=== PATIENT | male | born 1935 | race Two or more races ===

== ENCOUNTER → 2021-08-18 | Outpatient (CLI) | payer OTHER ==
[~2021-08-18] MED LIST: AML5T PO; SIMV-8 PO
[2021-08-18 09:10] LABS: Basophils # (auto) 0.1 10 ^3/uL (0-0.2); Basophils % (auto) 0.7 % (0.0-2.0); Eosinophils # (auto) 0.2 10 ^3/uL (0-0.8); Eosinophils % (auto) 2.6 % (0.0-7.0); Hematocrit 38.8 % (41.0-53.0); Hemoglobin 12.7 g/dL (13.5-17.5); Lymphocytes % (auto) 27.2 % (10.0-50.0); Mean Corpuscular Hemoglobin 28.1 pg (28.0-32.0); Mean Corpuscular Hgb Conc. 32.8 g/dL (32.0-36.0); Mean Corpuscular Volume 85.8 fL (80.0-100.0); Monocytes # (auto) 0.7 10 ^3/uL (0-1.3); Monocytes % (auto) 9.1 % (0.0-12.0); Neutrophils # (auto) 4.5 10 ^3/uL (1.6-8.6); Neutrophils % (auto) 60.4 % (37.0-80.0); Nucleated Red Blood Cells % 0.1 %; Red Blood Cells 4.52 10^6/uL (4.5-5.90); Red Cell Distribution Width 14.9 % (11.8-14.3); White Blood Cell 7.4 10^3/uL (4.4-10.8)
[2021-08-18 09:16] LABS: Urine Bacteria NONE SEEN /hpf (None Seen); Urine Blood Negative /uL (Negative); Urine Mucus FEW (None Seen); Urine Specific Gravity 1.011 (1.001-1.035); Urine WBC 1 /hpf (0 - 3)
[2021-08-18 10:09] LABS: Magnesium 2.2 mg/dL (1.6-2.6); Potassium 4.8 mmol/L (3.5-5.1)
[2021-08-18 11:15] LABS: Calcium 8.5 mg/dL (8.5-10.1)
[2021-08-18 11:33] LABS: Albumin 3.3 g/dL (3.4-5.0); BUN/Creatinine Ratio 19.5; Bilirubin, Total 0.4 mg/dL (0.2-1.0); Total Protein 6.3 g/dL (6.4-8.2)
== END | disposition home or self-care (01) ==
LOC: LAB 08:24
PROVIDERS: ATTEND Internal Medicine
DX: I12.9 Hypertensive chronic kidney disease with stage 1 through stage 4 chronic kidney disease, or unspecified chronic kidney disease (principal); E11.22 Type 2 diabetes mellitus with diabetic chronic kidney disease; N18.32 Chronic kidney disease, stage 3b; E78.5 Hyperlipidemia, unspecified
CPT/HCPCS: 36415; 80053; 80061; 81001; 83036; 83735; 83880; 84100; 84443; 85025

== ENCOUNTER → 2021-09-26 | Outpatient (CLI) | payer OTHER | END | disposition home or self-care (01) | LOC: XYW 09:18 | PROVIDERS: ATTEND Internal Medicine | DX: I34.8 Other nonrheumatic mitral valve disorders (principal) | CPT/HCPCS: 93306 ==

== ENCOUNTER → 2021-10-07 | Outpatient (CLI) | payer OTHER ==
[2021-10-07 13:19] LABS: Chloride 112 mmol/L (98-107); Potassium 4.3 mmol/L (3.5-5.1); Sodium 142 mmol/L (136-145)
[2021-10-07 13:28] LABS: Anion Gap 6 (5-15); BUN/Creatinine Ratio 17.9; Blood Urea Nitrogen 33 mg/dL (7-18); Calcium 8.3 mg/dL (8.5-10.1); Carbon Dioxide 24 mmol/L (21-32); GFR African American 45 mL/min; GFR Non-African American 37 mL/min; Glucose 145 mg/dL (74-106)
== END | disposition home or self-care (01) ==
LOC: LAB 08:27
PROVIDERS: ATTEND Internal Medicine
DX: E11.9 Type 2 diabetes mellitus without complications (principal)
CPT/HCPCS: 36415; 80048

== ENCOUNTER → 2022-02-17 | Outpatient (CLI) | payer OTHER ==
[2022-02-17 08:35] LABS: Urine Bacteria NONE SEEN /hpf (None Seen); Urine Blood Negative /uL (Negative); Urine WBC <1 /hpf (0 - 3)
[2022-02-17 08:52] LABS: Albumin 3.1 g/dL (3.4-5.0); Calcium 8.4 mg/dL (8.5-10.1); Potassium 4.3 mmol/L (3.5-5.1)
[2022-02-17 08:55] LABS: Protein, Urine 96.6 mg/dL (0.0-11.9)
[2022-02-17 08:56] LABS: BUN/Creatinine Ratio 17.2; Bilirubin, Total 0.4 mg/dL (0.2-1.0); Total Protein 6.5 g/dL (6.4-8.2)
== END | disposition home or self-care (01) ==
LOC: LAB 08:11
PROVIDERS: ATTEND Internal Medicine Nephrology
DX: N18.32 Chronic kidney disease, stage 3b (principal); N17.2 Acute kidney failure with medullary necrosis
CPT/HCPCS: 36415; 80053; 81001; 82570; 84156

== ENCOUNTER 2022-09-26 14:33 | Inpatient (IN) | payer OTHER ==
[~2022-09-26] VITALS: Ht 167.6 cm; Wt 79.9 kg
[2022-09-26] MEDS ORDERED: SODIUM CHLORIDE 0.9% 1,000 ML IV SCH (17:15)
[2022-09-26] MEDS ORDERED: ONDANSETRON HCL 4 MG/2 ML VIAL IV PRN (17:15)
[2022-09-26 18:03] VITALS: BP 175/84
[2022-09-26] MEDS ORDERED: PANTOPRAZOLE 40 MG/10 ML VIAL INJ IV ONE (18:15)
[2022-09-26 18:43] LABS: Albumin 2.5 g/dL (3.4-5.0); Anion Gap 8 (5-15); BUN/Creatinine Ratio 18.8; Blood Urea Nitrogen 36 mg/dL (7-18); Calcium 8.6 mg/dL (8.5-10.1); Carbon Dioxide 20 mmol/L (21-32); Chloride 114 mmol/L (98-107); GFR African American 43 mL/min; GFR Non-African American 35 mL/min; Glucose 79 mg/dL (74-106); Potassium 5.1 mmol/L (3.5-5.1); Sodium 142 mmol/L (136-145)
[2022-09-26 18:46] LABS: Alanine Aminotransferase 12 U/L (16-61); Alkaline Phosphatase 124 U/L (45-117); Aspartate Aminotransferase 36 U/L (15-37); Bilirubin, Total 0.6 mg/dL (0.2-1.0); Total Protein 7.2 g/dL (6.4-8.2)
[2022-09-26 18:58] LABS: Hematocrit 46.2 % (41.0-53.0); Hemoglobin 13.2 g/dL (13.5-17.5); Mean Corpuscular Hemoglobin 27.8 pg (28.0-32.0); Mean Corpuscular Hgb Conc. 28.5 g/dL (32.0-36.0); Mean Corpuscular Volume 97.5 fL (80.0-100.0); Red Blood Cells 4.74 10^6/uL (4.5-5.90); Red Cell Distribution Width 16.3 % (11.8-14.3); White Blood Cell 7.1 10^3/uL (4.4-10.8)
[2022-09-26] MEDS ORDERED: hydrALAZINE HCL 20 MG/ML VL IV PRN (19:00)
[2022-09-26 19:01] LABS: Band Neutrophils % (manual) 0; Basophils % (manual) 0 (0.0-2.0); Blast Cells 0; Metamyelocytes % 0; Myelocytes % 0; Promyelocytes % 0; Reactive Lymphocytes 0
[2022-09-26 19:27] LABS: Eosinophils % (manual) 1 (0-7); Lymphocytes % (manual) 17 (10.0-50.0); Monocytes % (manual) 15 (0-12)
[2022-09-26 20:41] LABS: INR 1.13 (0.9-1.15)
[2022-09-26 22:00] VITALS: BP 176/80
[2022-09-26 22:57] LABS: Urine Bacteria NONE SEEN /hpf (None Seen); Urine Blood Negative /uL (Negative); Urine Hyaline Cast MOD /lpf (0 - 2); Urine Mucus FEW (None Seen); Urine Specific Gravity 1.019 (1.001-1.035); Urine WBC <1 /hpf (0 - 3)
[2022-09-27] VITALS (10 sets, daily range): BP systolic 77–146; BP diastolic 44–82
[2022-09-27] MEDS ORDERED: LIDOCAINE VISCOUS 2% 15ML UD ONE (08:31)
[2022-09-27] MEDS ORDERED: diphenhdrAMINE HCL 50 MG/1 ML VL ONE (08:31)
[2022-09-27] MEDS ORDERED: MIDAZOLAM HCL 2MG/2ML 2ml VIAL (1mg/ml) ONE (08:31)
[2022-09-27] MEDS ORDERED: fentaNYL CITRATE 100 MCG/2 ML VL ONE (08:32)
[2022-09-27] MEDS: PANTOPRAZOLE 40 MG/10 ML VIAL INJ IV SCH (09:38)
[2022-09-27] MEDS ORDERED: amLODIPine BESYLATE 5 MG TAB PO SCH (10:00)
[2022-09-27] MEDS ORDERED: ADENOSINE 6 MG/2 ML INJ IV ONE (14:15)
[2022-09-27] MEDS: SODIUM CHLORIDE 0.9% 1,000 ML IV SCH (14:30)
[2022-09-27] MEDS ORDERED: AMIODARONE HCL 150 MG in D5W 5% 100 ML IV ONE (14:30)
[2022-09-27] MEDS ORDERED: SODIUM CHLORIDE 0.9% 500 ML IV ONE (14:30)
[2022-09-27] MEDS ORDERED: AMIODARONE 450mg/250ml AE 250 ML IV SCH (14:45)
[2022-09-27] MEDS ORDERED: ceFAZolin 1GM/50ML 50 ML IV ONE (14:45)
[2022-09-27] MEDS ORDERED: NOREPINEPHRINE 8 MG/250ML KIT 250 ML IV ONE (15:15)
[2022-09-27] MEDS ORDERED: CLINIMIX PER PHARMACY 0 ML IV SCH (16:30)
[2022-09-27 19:12] LABS: Anion Gap 8 (5-15); Carbon Dioxide 16 mmol/L (21-32); Chloride 117 mmol/L (98-107); Glucose 115 mg/dL (74-106); Potassium 5.4 mmol/L (3.5-5.1); Sodium 141 mmol/L (136-145)
[2022-09-27 19:15] LABS: BUN/Creatinine Ratio 19.6; Blood Urea Nitrogen 39 mg/dL (7-18); GFR African American 41 mL/min; GFR Non-African American 34 mL/min
[2022-09-27 19:16] LABS: Alanine Aminotransferase 16 U/L (16-61); Albumin 2.4 g/dL (3.4-5.0); Alkaline Phosphatase 122 U/L (45-117); Aspartate Aminotransferase 44 U/L (15-37); Bilirubin, Total 0.6 mg/dL (0.2-1.0); Calcium 8.4 mg/dL (8.5-10.1); Magnesium 2.7 mg/dL (1.6-2.6); Total Protein 6.8 g/dL (6.4-8.2)
[2022-09-27] MEDS: AMINO ACID INFUSION IN D10W 1,000 ML IV NR (21:02)
[2022-09-27] MEDS: AMIODARONE 450mg/250ml AE 250 ML IV SCH (21:02)
[2022-09-27] MEDS ORDERED: ATORVASTATIN 20 MG TAB PO SCH (22:00)
[2022-09-27] MEDS: InsuLIN REG 1unit/0.01ml Soln (100units/ml) SC SCH (23:18)
[2022-09-27] MEDS: ACCU-CHEK COMFORT CURVE STRIP VI SCH (23:19)
[2022-09-28] MEDS ORDERED: DEXTROSE (50%) 50ML SYRG IV SCH
[2022-09-28 05:45] VITALS: BP 141/67
[2022-09-28] MEDS: InsuLIN REG 1unit/0.01ml Soln (100units/ml) SC SCH ×4 (06:00→23:45)
[2022-09-28 06:50] LABS: Albumin 2.3 g/dL (3.4-5.0); BUN/Creatinine Ratio 17.2; Bilirubin, Total 0.7 mg/dL (0.2-1.0); Calcium 8.2 mg/dL (8.5-10.1); Magnesium 2.5 mg/dL (1.6-2.6); Phosphorus 4.6 mg/dL (2.5-4.90); Total Protein 6.6 g/dL (6.4-8.2)
[2022-09-28] MEDS: ACCU-CHEK COMFORT CURVE STRIP VI SCH ×4 (06:55→23:45)
[2022-09-28 06:56] LABS: Basophils # (auto) 0 10 ^3/uL (0-0.2); Basophils % (auto) 0.4 % (0.0-2.0); Eosinophils # (auto) 0.1 10 ^3/uL (0-0.8); Eosinophils % (auto) 0.8 % (0.0-7.0); Hematocrit 39.9 % (41.0-53.0); Lymphocytes # (auto) 1.2 10 ^3/uL (0.4-5.4); Lymphocytes % (auto) 14.2 % (10.0-50.0); Mean Corpuscular Hemoglobin 27.9 pg (28.0-32.0); Mean Corpuscular Hgb Conc. 32.7 g/dL (32.0-36.0); Mean Corpuscular Volume 85.4 fL (80.0-100.0); Monocytes # (auto) 1.3 10 ^3/uL (0-1.3); Monocytes % (auto) 15.7 % (0.0-12.0); Neutrophils # (auto) 5.8 10 ^3/uL (1.6-8.6); Neutrophils % (auto) 68.9 % (37.0-80.0); Red Blood Cells 4.67 10^6/uL (4.5-5.90); Red Cell Distribution Width 14.8 % (11.8-14.3); White Blood Cell 8.4 10^3/uL (4.4-10.8)
[2022-09-28] MEDS: SODIUM CHLORIDE 0.9% 1,000 ML IV SCH (07:05)
[2022-09-28 07:10] LABS: Potassium 5.8 mmol/L (3.5-5.1)
[2022-09-28 08:00] VITALS: BP 139/58
[2022-09-28] MEDS ORDERED: SODIUM BICARBONATE 50ML VIAL 75 ML in D5W 5% 1,000 ML IV SCH (08:00)
[2022-09-28] MEDS ORDERED: DEXTROSE (50%) 50ML SYRG IV ONE (08:15)
[2022-09-28] MEDS ORDERED: SODIUM ZIRCONIUM CYCL 10 GM PAK PO ONE (08:15)
[2022-09-28] MEDS ORDERED: INSULIN LISPRO (HUMAN) 100 UNITS/ML ML SC ONE (08:15)
[2022-09-28 09:38] VITALS: BP 139/58
[2022-09-28] MEDS: PANTOPRAZOLE 40 MG/10 ML VIAL INJ IV SCH (11:12)
[2022-09-28] MEDS: SODIUM BICARBONATE 50ML VIAL 75 ML in D5W 5% 1,000 ML IV SCH (11:14)
[2022-09-28 13:00] VITALS: BP 191/52
[2022-09-28] MEDS ORDERED: METOPROLOL TARTRATE 1MG/1ML-5ML VIAL IV ONE (13:00)
[2022-09-28] MEDS ORDERED: cloNIDine HCL 0.1 MG TAB PO PRN (13:00)
[2022-09-28 13:34] LABS: BUN/Creatinine Ratio 18.5; Calcium 8.5 mg/dL (8.5-10.1); Potassium 4.9 mmol/L (3.5-5.1)
[2022-09-28] MEDS: MORPHINE SULFATE INJ 2 MG/ml SYRG IV PRN (15:20)
[2022-09-28] MEDS: AMIODARONE 450mg/250ml AE 250 ML IV SCH (16:27)
[2022-09-28 16:30] VITALS: BP 161/59
[2022-09-28] MEDS: AMINO ACID INFUSION IN D10W 1,000 ML IV NR (20:27)
[2022-09-28 20:30] LABS: Urine Bacteria NONE SEEN /hpf (None Seen); Urine Blood Negative /uL (Negative); Urine Hyaline Cast FEW /lpf (0 - 2); Urine Specific Gravity 1.018 (1.001-1.035); Urine WBC 3 /hpf (0 - 3)
[2022-09-28 20:41] LABS: Creatinine, Urine 160 mg/dL (30.0-125.0); Sodium Urine 38 mmol/L (40-220)
[2022-09-28 20:43] LABS: Protein, Urine 185.7 mg/dL (0.0-11.9)
[2022-09-28 22:00] VITALS: BP 165/69
[2022-09-28] MEDS ORDERED: METOPROLOL TARTRATE 1MG/1ML-5ML VIAL IV SCH (22:00)
[2022-09-29 05:00] VITALS: BP 143/70
[2022-09-29] MEDS: InsuLIN REG 1unit/0.01ml Soln (100units/ml) SC SCH ×3 (06:00→18:00)
[2022-09-29 06:25] LABS: Basophils # (auto) 0 10 ^3/uL (0-0.2); Basophils % (auto) 0.4 % (0.0-2.0); Eosinophils # (auto) 0.1 10 ^3/uL (0-0.8); Eosinophils % (auto) 1.1 % (0.0-7.0); Hematocrit 39.4 % (41.0-53.0); Hemoglobin 12.6 g/dL (13.5-17.5); Lymphocytes # (auto) 0.8 10 ^3/uL (0.4-5.4); Lymphocytes % (auto) 9.2 % (10.0-50.0); Mean Corpuscular Hemoglobin 27.3 pg (28.0-32.0); Mean Corpuscular Volume 85.3 fL (80.0-100.0); Monocytes % (auto) 11.5 % (0.0-12.0); Neutrophils # (auto) 6.8 10 ^3/uL (1.6-8.6); Neutrophils % (auto) 77.8 % (37.0-80.0); Nucleated Red Blood Cells % 0.3 %; Red Blood Cells 4.62 10^6/uL (4.5-5.90); Red Cell Distribution Width 14.5 % (11.8-14.3); White Blood Cell 8.7 10^3/uL (4.4-10.8)
[2022-09-29 06:42] LABS: Albumin 2.1 g/dL (3.4-5.0); Calcium 8.2 mg/dL (8.5-10.1); Magnesium 2.3 mg/dL (1.6-2.6); Potassium 4.3 mmol/L (3.5-5.1)
[2022-09-29 06:46] LABS: BUN/Creatinine Ratio 19.1; Bilirubin, Total 0.5 mg/dL (0.2-1.0)
[2022-09-29] MEDS: AMIODARONE 450mg/250ml AE 250 ML IV SCH (06:51)
[2022-09-29] MEDS: ACCU-CHEK COMFORT CURVE STRIP VI SCH ×3 (06:51→18:39)
[2022-09-29] MEDS: SODIUM BICARBONATE 50ML VIAL 75 ML in D5W 5% 1,000 ML IV SCH ×2 (06:52→15:25)
[2022-09-29 09:00] VITALS: BP 148/69
[2022-09-29] MEDS: PANTOPRAZOLE 40 MG/10 ML VIAL INJ IV SCH (10:22)
[2022-09-29 12:43] VITALS: BP 155/60
[2022-09-29] MEDS ORDERED: fentaNYL CITRATE 100 MCG/2 ML VL ONE (16:34)
[2022-09-29 16:40] VITALS: BP 146/76
[2022-09-29] MEDS ORDERED: MIDAZOLAM HCL 2MG/2ML 2ml VIAL (1mg/ml) ONE (16:41)
[2022-09-29] MEDS ORDERED: ceFAZolin 1GM VL ONE (17:05)
[2022-09-29] MEDS ORDERED: ONDANSETRON HCL 4 MG/2 ML VIAL ONE (17:10)
[2022-09-29] MEDS ORDERED: PROPOFOL 10 MG/ML 20 ML IV ONE (17:11)
[2022-09-29] MEDS ORDERED: ONDANSETRON HCL 4 MG/2 ML VIAL IV PRN (17:45)
[2022-09-29 19:03] VITALS: BP 132/63
[2022-09-29] MEDS: AMINO ACID INFUSION IN D10W 1,000 ML IV NR (21:52)
[2022-09-29 22:00] VITALS: BP 112/71
[2022-09-30] MEDS: InsuLIN REG 1unit/0.01ml Soln (100units/ml) SC SCH ×5 (00:13→23:41)
[2022-09-30] MEDS: ACCU-CHEK COMFORT CURVE STRIP VI SCH ×5 (00:15→23:43)
[2022-09-30] MEDS: SODIUM BICARBONATE 50ML VIAL 75 ML in D5W 5% 1,000 ML IV SCH ×3 (04:42→21:47)
[2022-09-30 05:00] VITALS: BP 109/58
[2022-09-30] MEDS: ENSURE CLEAR Apple 8oz Carton PO SCH ×4 (06:00→23:43)
[2022-09-30 06:39] LABS: Basophils # (auto) 0 10 ^3/uL (0-0.2); Basophils % (auto) 0.2 % (0.0-2.0); Eosinophils # (auto) 0.1 10 ^3/uL (0-0.8); Eosinophils % (auto) 0.8 % (0.0-7.0); Hematocrit 38.5 % (41.0-53.0); Hemoglobin 12.7 g/dL (13.5-17.5); Lymphocytes # (auto) 0.5 10 ^3/uL (0.4-5.4); Lymphocytes % (auto) 5.3 % (10.0-50.0); Monocytes # (auto) 0.9 10 ^3/uL (0-1.3); Monocytes % (auto) 9.2 % (0.0-12.0); Neutrophils # (auto) 8.5 10 ^3/uL (1.6-8.6); Neutrophils % (auto) 84.5 % (37.0-80.0); Nucleated Red Blood Cells % 0.1 %; Red Blood Cells 4.53 10^6/uL (4.5-5.90); Red Cell Distribution Width 14.7 % (11.8-14.3); White Blood Cell 10.1 10^3/uL (4.4-10.8)
[2022-09-30 06:45] LABS: BUN/Creatinine Ratio 19.1; Potassium 4.3 mmol/L (3.5-5.1)
[2022-09-30 06:46] LABS: Albumin 2.1 g/dL (3.4-5.0); Calcium 8.2 mg/dL (8.5-10.1)
[2022-09-30 06:47] LABS: Magnesium 2.3 mg/dL (1.6-2.6)
[2022-09-30 08:30] VITALS: BP 122/65
[2022-09-30 12:58] VITALS: BP 147/63
[2022-09-30 16:59] VITALS: BP 129/62
[2022-09-30] MEDS: AMINO ACID INFUSION IN D10W 1,000 ML IV NR (20:13)
[2022-09-30 22:00] VITALS: BP 123/55
[2022-10-01 05:00] VITALS: BP 113/63
[2022-10-01] MEDS: ACCU-CHEK COMFORT CURVE STRIP VI SCH ×4 (05:40→23:42)
[2022-10-01] MEDS: InsuLIN REG 1unit/0.01ml Soln (100units/ml) SC SCH ×4 (05:41→23:42)
[2022-10-01] MEDS: ENSURE CLEAR Apple 8oz Carton PO SCH (05:44)
[2022-10-01 05:56] LABS: Albumin 1.9 g/dL (3.4-5.0); BUN/Creatinine Ratio 26.9; Calcium 7.7 mg/dL (8.5-10.1); Magnesium 1.9 mg/dL (1.6-2.6); Potassium 3.9 mmol/L (3.5-5.1)
[2022-10-01 09:00] VITALS: BP 133/51
[2022-10-01] MEDS: MORPHINE SULFATE INJ 2 MG/ml SYRG IV PRN (11:13)
[2022-10-01 13:00] VITALS: BP 142/70
[2022-10-01 17:00] VITALS: BP 116/62
[2022-10-01] MEDS ORDERED: ENSURE CLEAR Apple 8oz Carton PEG SCH (18:00)
[2022-10-01] MEDS: AMINO ACID INFUSION IN D10W 1,000 ML IV NR (19:34)
[2022-10-01] MEDS: SODIUM BICARBONATE 50ML VIAL 75 ML in D5W 5% 1,000 ML IV SCH (20:37)
[2022-10-01 22:00] VITALS: BP 139/67
[2022-10-02 05:00] VITALS: BP 136/65
[2022-10-02] MEDS: MORPHINE SULFATE INJ 2 MG/ml SYRG IV PRN (05:47)
[2022-10-02] MEDS: ACCU-CHEK COMFORT CURVE STRIP VI SCH ×3 (05:54→17:41)
[2022-10-02] MEDS: InsuLIN REG 1unit/0.01ml Soln (100units/ml) SC SCH ×3 (05:57→17:42)
[2022-10-02] MEDS: ENSURE CLEAR Apple 8oz Carton PO SCH ×3 (05:57→18:09)
[2022-10-02 07:38] LABS: Calcium 7.8 mg/dL (8.5-10.1); Potassium 3.7 mmol/L (3.5-5.1)
[2022-10-02 07:42] LABS: BUN/Creatinine Ratio 27.3; Bilirubin, Total 0.4 mg/dL (0.2-1.0); Total Protein 5.9 g/dL (6.4-8.2)
[2022-10-02 08:00] VITALS: BP 159/77
[2022-10-02] MEDS ORDERED: SODIUM CHLORIDE 0.9% 1,000 ML IV ONE (11:00)
[2022-10-02] MEDS ORDERED: ALBUMIN 5% 250 ML IV ONE (11:00)
[2022-10-02 12:00] VITALS: BP 126/60
[2022-10-02] MEDS ORDERED: cloNIDine 0.1 mg/24hr 7 DAY PATCH TD ONE (14:15)
[2022-10-02] MEDS ORDERED: amLODIPine BESYLATE 5 MG TAB PEG ONE (14:15)
[2022-10-02] MEDS ORDERED: CARVEDILOL 3.125 MG TAB PEG ONE (14:30)
[2022-10-02 16:00] VITALS: BP 102/62
[2022-10-02 16:41] LABS: Basophils # (auto) 0 10 ^3/uL (0-0.2); Basophils % (auto) 0.3 % (0.0-2.0); Eosinophils # (auto) 0 10 ^3/uL (0-0.8); Eosinophils % (auto) 0.1 % (0.0-7.0); Hematocrit 32.1 % (41.0-53.0); Hemoglobin 10.7 g/dL (13.5-17.5); Lymphocytes # (auto) 0.2 10 ^3/uL (0.4-5.4); Lymphocytes % (auto) 2.4 % (10.0-50.0); Mean Corpuscular Hemoglobin 28.2 pg (28.0-32.0); Mean Corpuscular Hgb Conc. 33.4 g/dL (32.0-36.0); Mean Corpuscular Volume 84.3 fL (80.0-100.0); Monocytes # (auto) 0.6 10 ^3/uL (0-1.3); Monocytes % (auto) 7.8 % (0.0-12.0); Neutrophils # (auto) 7.3 10 ^3/uL (1.6-8.6); Neutrophils % (auto) 89.4 % (37.0-80.0); Nucleated Red Blood Cells % 0.1 %; Red Cell Distribution Width 13.9 % (11.8-14.3); White Blood Cell 8.1 10^3/uL (4.4-10.8)
[2022-10-02 17:06] LABS: INR 1.2 (0.9-1.15); Partial Thromboplastin Time 30.1 sec (24.6-33.4)
[2022-10-02] MEDS: AMINO ACID INFUSION IN D10W 1,000 ML IV NR (19:05)
[2022-10-02] MEDS ORDERED: AMINO ACID INFUSION IN D10W 1,000 ML IV NR (20:00)
[2022-10-02 22:00] VITALS: BP 98/57
[2022-10-03] VITALS (7 sets, daily range): BP systolic 98–162; BP diastolic 57–75
[2022-10-03] MEDS: ACCU-CHEK COMFORT CURVE STRIP VI SCH ×4 (00:22→18:36)
[2022-10-03] MEDS ORDERED: ALBUTEROL SULF 2.5 MG/0.5ML(0.5%) NEB SOLN NEB PRN (03:00)
[2022-10-03] MEDS ORDERED: ALBUTEROL MEDNEB 2.5 mg/3ml NEB ONE (03:05)
[2022-10-03] MEDS: InsuLIN REG 1unit/0.01ml Soln (100units/ml) SC SCH ×4 (05:47→18:42)
[2022-10-03 05:51] LABS: Albumin 2.3 g/dL (3.4-5.0); Magnesium 1.9 mg/dL (1.6-2.6)
[2022-10-03 05:54] LABS: BUN/Creatinine Ratio 33.2; Calcium 7.8 mg/dL (8.5-10.1)
[2022-10-03 05:57] LABS: Bilirubin, Total 0.5 mg/dL (0.2-1.0); Phosphorus 3.7 mg/dL (2.5-4.90); Total Protein 5.7 g/dL (6.4-8.2)
[2022-10-03] MEDS: ENSURE CLEAR Apple 8oz Carton PO SCH ×4 (06:00→18:00)
[2022-10-03 06:09] LABS: Basophils # (auto) 0 10 ^3/uL (0-0.2); Basophils % (auto) 0.1 % (0.0-2.0); Eosinophils # (auto) 0 10 ^3/uL (0-0.8); Eosinophils % (auto) 0.1 % (0.0-7.0); Hematocrit 32.9 % (41.0-53.0); Hemoglobin 10.9 g/dL (13.5-17.5); Lymphocytes # (auto) 0.5 10 ^3/uL (0.4-5.4); Lymphocytes % (auto) 5.4 % (10.0-50.0); Mean Corpuscular Hemoglobin 27.9 pg (28.0-32.0); Mean Corpuscular Hgb Conc. 33.2 g/dL (32.0-36.0); Mean Corpuscular Volume 83.9 fL (80.0-100.0); Monocytes # (auto) 0.8 10 ^3/uL (0-1.3); Monocytes % (auto) 8.8 % (0.0-12.0); Neutrophils % (auto) 85.6 % (37.0-80.0); Nucleated Red Blood Cells % 0.1 %; Red Blood Cells 3.92 10^6/uL (4.5-5.90); Red Cell Distribution Width 13.9 % (11.8-14.3); White Blood Cell 9.3 10^3/uL (4.4-10.8)
[2022-10-03] MEDS: MORPHINE SULFATE INJ 2 MG/ml SYRG IV PRN ×3 (06:15→20:01)
[2022-10-03] MEDS: guaiFENesin-DM 100/10mg/5ml SYR PO PRN ×2 (10:50→20:00)
[2022-10-03 11:48] LABS: Creatinine, Urine 109 mg/dL (30.0-125.0); Protein, Urine 117.9 mg/dL (0.0-11.9); Sodium Urine < 5 mmol/L (40-220)
[2022-10-03] MEDS ORDERED: FUROSEMIDE 40 MG/4 ML VIAL IV ONE (16:30)
[2022-10-03] MEDS ORDERED: AMINO ACID INFUSION IN D10W 1,000 ML IV NR (20:00)
[2022-10-04] MEDS: ACCU-CHEK COMFORT CURVE STRIP VI SCH ×4 (00:03→17:35)
[2022-10-04] MEDS: ENSURE CLEAR Apple 8oz Carton PO SCH (00:03)
[2022-10-04] MEDS: MORPHINE SULFATE INJ 2 MG/ml SYRG IV PRN ×4 (04:21→22:44)
[2022-10-04 05:00] VITALS: BP 124/62
[2022-10-04] MEDS: InsuLIN REG 1unit/0.01ml Soln (100units/ml) SC SCH ×4 (06:00→17:35)
[2022-10-04 08:55] VITALS: BP 123/69
[2022-10-04 11:12] LABS: Magnesium 1.8 mg/dL (1.6-2.6)
[2022-10-04 12:31] LABS: Phosphorus 5.8 mg/dL (2.5-4.90)
[2022-10-04 13:00] VITALS: BP 111/56
[2022-10-04 15:29] LABS: Anion Gap 13 (5-15); Carbon Dioxide 17 mmol/L (21-32); Chloride 95 mmol/L (98-107); Glucose 82 mg/dL (74-106); Potassium 4.3 mmol/L (3.5-5.1); Sodium 125 mmol/L (136-145)
[2022-10-04 15:30] LABS: Alanine Aminotransferase 16 U/L (16-61); Alkaline Phosphatase 131 U/L (45-117); Aspartate Aminotransferase 67 U/L (15-37); BUN/Creatinine Ratio 34.4; Blood Urea Nitrogen 74 mg/dL (7-18); Calcium 7.8 mg/dL (8.5-10.1); GFR African American 38 mL/min; GFR Non-African American 31 mL/min
[2022-10-04 15:31] LABS: Albumin 2.3 g/dL (3.4-5.0); Bilirubin, Total 0.6 mg/dL (0.2-1.0); Total Protein 5.7 g/dL (6.4-8.2)
[2022-10-04 17:00] VITALS: BP 130/57
[2022-10-04] MEDS: Glucerna Carbsteady SHAKE Vanilla 8oz PO SCH (17:50)
[2022-10-04 20:00] VITALS: BP 126/53
[2022-10-04 22:00] VITALS: BP 126/53
[2022-10-05] MEDS: ACCU-CHEK COMFORT CURVE STRIP VI SCH ×4 (00:33→17:48)
[2022-10-05 05:00] VITALS: BP 104/39
[2022-10-05] MEDS: InsuLIN REG 1unit/0.01ml Soln (100units/ml) SC SCH ×4 (05:44→17:48)
[2022-10-05 06:30] LABS: BUN/Creatinine Ratio 36.3; Calcium 7.7 mg/dL (8.5-10.1); Potassium 4.7 mmol/L (3.5-5.1)
[2022-10-05 09:00] VITALS: BP 117/50
[2022-10-05] MEDS: Glucerna Carbsteady SHAKE Vanilla 8oz PO SCH (09:40)
[2022-10-05] MEDS: PANTOPRAZOLE 40 MG/10 ML VIAL INJ IV SCH (10:00)
[2022-10-05] MEDS ORDERED: Nepro With Carb Steady 1 Liter Bottle GT SCH (10:00)
[2022-10-05] MEDS ORDERED: PANTOPRAZOLE 40 MG/10 ML VIAL INJ IV ONE (10:00)
[2022-10-05] MEDS ORDERED: HEPARIN SODIUM (PORCINE) 5000 UNITS/ML 1ML VIAL SC ONE (10:30)
[2022-10-05 13:00] VITALS: BP 126/49
[2022-10-05] MEDS: MORPHINE SULFATE INJ 2 MG/ml SYRG IV PRN (15:57)
[2022-10-05 17:03] VITALS: BP 111/50
[2022-10-05 17:15] VITALS: BP 111/50
[2022-10-05] MEDS ORDERED: levoFLOXacin 500MG 100 ML IV SCH (17:30)
[2022-10-05] MEDS ORDERED: levoFLOXacin 500MG 100 ML IV ONE (17:30)
[2022-10-05 22:00] VITALS: BP 104/47
[2022-10-05] MEDS: HEPARIN SODIUM (PORCINE) 5000 UNITS/ML 1ML VIAL SC SCH (22:38)
[2022-10-06] MEDS: ACCU-CHEK COMFORT CURVE STRIP VI SCH ×4 (00:11→17:29)
[2022-10-06] MEDS: InsuLIN REG 1unit/0.01ml Soln (100units/ml) SC SCH ×5 (00:13→23:49)
[2022-10-06 05:00] VITALS: BP 124/52
[2022-10-06 06:13] LABS: Calcium 7.4 mg/dL (8.5-10.1); Potassium 4.6 mmol/L (3.5-5.1)
[2022-10-06 06:15] LABS: BUN/Creatinine Ratio 38.8
[2022-10-06] MEDS ORDERED: MELO1TAB73 PO (08:48)
[2022-10-06] MEDS ORDERED: TAMS0.4C36 PO (08:48)
[2022-10-06 09:00] VITALS: BP 134/42
[2022-10-06] MEDS: HEPARIN SODIUM (PORCINE) 5000 UNITS/ML 1ML VIAL SC SCH ×2 (09:30→22:08)
[2022-10-06] MEDS: PANTOPRAZOLE 40 MG/10 ML VIAL INJ IV SCH (09:38)
[2022-10-06] MEDS: MORPHINE SULFATE INJ 2 MG/ml SYRG IV PRN ×2 (09:39→22:14)
[2022-10-06 13:00] VITALS: BP 111/49
[2022-10-06 16:36] VITALS: BP 145/59
[2022-10-06] MEDS: levoFLOXacin 250MG 50 ML IV SCH (17:46)
[2022-10-06 22:00] VITALS: BP 133/61
[2022-10-07] MEDS: MORPHINE SULFATE INJ 2 MG/ml SYRG IV PRN ×4 (02:43→23:48)
[2022-10-07 05:00] VITALS: BP 131/43
[2022-10-07] MEDS: ACCU-CHEK COMFORT CURVE STRIP VI SCH ×4 (06:01→17:06)
[2022-10-07] MEDS: InsuLIN REG 1unit/0.01ml Soln (100units/ml) SC SCH ×3 (06:05→17:06)
[2022-10-07 08:00] VITALS: BP 141/62
[2022-10-07] MEDS: PANTOPRAZOLE 40 MG/10 ML VIAL INJ IV SCH (09:28)
[2022-10-07] MEDS: HEPARIN SODIUM (PORCINE) 5000 UNITS/ML 1ML VIAL SC SCH ×2 (09:28→21:35)
[2022-10-07 12:00] VITALS: BP 119/50
[2022-10-07 12:08] LABS: Basophils # (auto) 0 10 ^3/uL (0-0.2); Eosinophils # (auto) 0 10 ^3/uL (0-0.8); Eosinophils % (auto) 0.1 % (0.0-7.0); Hematocrit 34.4 % (41.0-53.0); Hemoglobin 11.3 g/dL (13.5-17.5); Lymphocytes # (auto) 0.3 10 ^3/uL (0.4-5.4); Lymphocytes % (auto) 2.2 % (10.0-50.0); Mean Corpuscular Hemoglobin 27.4 pg (28.0-32.0); Mean Corpuscular Hgb Conc. 32.7 g/dL (32.0-36.0); Mean Corpuscular Volume 83.7 fL (80.0-100.0); Monocytes # (auto) 1.6 10 ^3/uL (0-1.3); Monocytes % (auto) 14.4 % (0.0-12.0); Neutrophils # (auto) 9.4 10 ^3/uL (1.6-8.6); Neutrophils % (auto) 83.3 % (37.0-80.0); Nucleated Red Blood Cells % 0.1 %; Red Blood Cells 4.11 10^6/uL (4.5-5.90); Red Cell Distribution Width 14.4 % (11.8-14.3); White Blood Cell 11.3 10^3/uL (4.4-10.8)
[2022-10-07 12:30] LABS: Albumin 1.7 g/dL (3.4-5.0); Calcium 7.8 mg/dL (8.5-10.1); Potassium 4.1 mmol/L (3.5-5.1)
[2022-10-07 12:35] LABS: BUN/Creatinine Ratio 38.8; Bilirubin, Total 0.4 mg/dL (0.2-1.0); Total Protein 5.5 g/dL (6.4-8.2)
[2022-10-07] MEDS ORDERED: SODIUM CHLORIDE 0.9% 1,000 ML IV ONE (14:15)
[2022-10-07 16:00] VITALS: BP 142/56
[2022-10-07 22:00] VITALS: BP 117/82
[2022-10-08] VITALS (84 sets, daily range): BP systolic 73–203; BP diastolic 42–163
[2022-10-08] MEDS: ACCU-CHEK COMFORT CURVE STRIP VI SCH ×3 (00:09→21:32)
[2022-10-08] MEDS: InsuLIN REG 1unit/0.01ml Soln (100units/ml) SC SCH ×3 (00:14→21:35)
[2022-10-08] MEDS ORDERED: ETOMIDATE (2MG/ML) 20ML VIAL IV ONE (05:38)
[2022-10-08] MEDS ORDERED: SUCCINYLCHOLINE CHLORIDE 20 MG/ML 10ML VIAL IV ONE (05:38)
[2022-10-08] MEDS ORDERED: NOREPINEPHRINE 8 MG/250ML KIT 250 ML IV ONE (06:03)
[2022-10-08] MEDS: NOREPINEPHRINE 8 MG/250ML KIT 250 ML IV SCH (06:03)
[2022-10-08] MEDS: MIDAZOLAM DRIP 50 mg/50mL 50 ML IV SCH ×3 (06:03→22:41)
[2022-10-08 06:57] LABS: Basophils # (auto) 0 10 ^3/uL (0-0.2); Basophils % (auto) 0.1 % (0.0-2.0); Eosinophils # (auto) 0 10 ^3/uL (0-0.8); Hematocrit 38.2 % (41.0-53.0); Hemoglobin 12.2 g/dL (13.5-17.5); Lymphocytes # (auto) 0.3 10 ^3/uL (0.4-5.4); Mean Corpuscular Hemoglobin 27.6 pg (28.0-32.0); Mean Corpuscular Hgb Conc. 31.9 g/dL (32.0-36.0); Mean Corpuscular Volume 86.3 fL (80.0-100.0); Monocytes # (auto) 1.3 10 ^3/uL (0-1.3); Monocytes % (auto) 11.8 % (0.0-12.0); Neutrophils # (auto) 9.5 10 ^3/uL (1.6-8.6); Neutrophils % (auto) 85.1 % (37.0-80.0); Nucleated Red Blood Cells % 0.3 %; Red Blood Cells 4.43 10^6/uL (4.5-5.90); Red Cell Distribution Width 14.9 % (11.8-14.3); White Blood Cell 11.1 10^3/uL (4.4-10.8)
[2022-10-08 07:03] LABS: Albumin 1.8 g/dL (3.4-5.0); Calcium 8.2 mg/dL (8.5-10.1); Potassium 4.3 mmol/L (3.5-5.1)
[2022-10-08 07:09] LABS: BUN/Creatinine Ratio 38.4; Bilirubin, Total 0.3 mg/dL (0.2-1.0); Total Protein 5.9 g/dL (6.4-8.2)
[2022-10-08] MEDS: PANTOPRAZOLE 40 MG/10 ML VIAL INJ IV SCH (10:06)
[2022-10-08] MEDS: HEPARIN SODIUM (PORCINE) 5000 UNITS/ML 1ML VIAL SC SCH ×2 (10:10→21:27)
[2022-10-08] MEDS: levoFLOXacin 250MG 50 ML IV SCH (19:32)
[2022-10-09] VITALS (77 sets, daily range): BP systolic 0–192; BP diastolic 0–99
[2022-10-09 06:14] LABS: Basophils # (auto) 0 10 ^3/uL (0-0.2); Basophils % (auto) 0.2 % (0.0-2.0); Eosinophils # (auto) 0.1 10 ^3/uL (0-0.8); Eosinophils % (auto) 0.5 % (0.0-7.0); Hemoglobin 11.4 g/dL (13.5-17.5); Lymphocytes # (auto) 0.7 10 ^3/uL (0.4-5.4); Lymphocytes % (auto) 7.4 % (10.0-50.0); Mean Corpuscular Hemoglobin 28.9 pg (28.0-32.0); Mean Corpuscular Hgb Conc. 34.4 g/dL (32.0-36.0); Mean Corpuscular Volume 84.1 fL (80.0-100.0); Monocytes # (auto) 1.4 10 ^3/uL (0-1.3); Monocytes % (auto) 14.3 % (0.0-12.0); Neutrophils # (auto) 7.7 10 ^3/uL (1.6-8.6); Neutrophils % (auto) 77.6 % (37.0-80.0); Nucleated Red Blood Cells % 0.2 %; Red Blood Cells 3.93 10^6/uL (4.5-5.90); Red Cell Distribution Width 14.6 % (11.8-14.3); White Blood Cell 9.9 10^3/uL (4.4-10.8)
[2022-10-09 06:20] LABS: Potassium 4.6 mmol/L (3.5-5.1)
[2022-10-09 06:33] LABS: Albumin 1.5 g/dL (3.4-5.0); BUN/Creatinine Ratio 43.9; Bilirubin, Total 0.5 mg/dL (0.2-1.0); Calcium 7.7 mg/dL (8.5-10.1); Total Protein 4.5 g/dL (6.4-8.2)
[2022-10-09] MEDS: ACCU-CHEK COMFORT CURVE STRIP VI SCH ×3 (06:44→18:00)
[2022-10-09] MEDS: InsuLIN REG 1unit/0.01ml Soln (100units/ml) SC SCH ×3 (06:45→18:00)
[2022-10-09] MEDS: MIDAZOLAM DRIP 50 mg/50mL 50 ML IV SCH (08:19)
[2022-10-09] MEDS: NOREPINEPHRINE 8 MG/250ML KIT 250 ML IV SCH (08:31)
[2022-10-09] MEDS: PANTOPRAZOLE 40 MG/10 ML VIAL INJ IV SCH (09:54)
[2022-10-09] MEDS: HEPARIN SODIUM (PORCINE) 5000 UNITS/ML 1ML VIAL SC SCH (10:00)
[2022-10-09] MEDS: LORazepam 2MG/ML-1ML VIAL IV PRN ×2 (16:08→18:59)
[2022-10-09] MEDS: MORPHINE SULFATE INJ 2 MG/ml SYRG IV PRN ×3 (16:09→18:08)
== END 2022-10-09 22:45 | DRG 374 ==
LOC: TELE-E-ADS 15:20 → EAST 17:20 → TELE-CENTR 21:53 → CENTRAL 10-07 20:57 → ICU CENTRL 10-08 05:50
PROVIDERS: ADMIT Registered Nurse; ATTEND Internal Medicine
PROC: 05HF33Z Insertion of Infusion Device into Left Cephalic Vein, Percutaneous Approach (ICD-10-PCS; 2022-09-27)
PROC: B54NZZA Ultrasonography of Left Upper Extremity Veins, Guidance (ICD-10-PCS; 2022-09-27)
PROC: 0W993ZZ Drainage of Right Pleural Cavity, Percutaneous Approach (ICD-10-PCS; 2022-09-28)
PROC: 0DH63UZ Insertion of Feeding Device into Stomach, Percutaneous Approach (ICD-10-PCS; 2022-09-29)
PROC: 0DB58ZX Excision of Esophagus, Via Natural or Artificial Opening Endoscopic, Diagnostic (ICD-10-PCS; 2022-09-29)
PROC: 0DB68ZX Excision of Stomach, Via Natural or Artificial Opening Endoscopic, Diagnostic (ICD-10-PCS; 2022-09-29)
PROC: 0W993ZZ Drainage of Right Pleural Cavity, Percutaneous Approach (ICD-10-PCS; 2022-10-02)
PROC: 05HC33Z Insertion of Infusion Device into Left Basilic Vein, Percutaneous Approach (ICD-10-PCS; 2022-10-03)
PROC: B54NZZA Ultrasonography of Left Upper Extremity Veins, Guidance (ICD-10-PCS; 2022-10-03)
PROC: 5A1945Z Respiratory Ventilation, 24-96 Consecutive Hours (ICD-10-PCS; principal; 2022-10-08)
PROC: 0BH17EZ Insertion of Endotracheal Airway into Trachea, Via Natural or Artificial Opening (ICD-10-PCS; 2022-10-08)
DX: C15.9 Malignant neoplasm of esophagus, unspecified (principal); J18.9 Pneumonia, unspecified organism; J96.21 Acute and chronic respiratory failure with hypoxia; N17.0 Acute kidney failure with tubular necrosis; J90 Pleural effusion, not elsewhere classified; R47.01 Aphasia; E44.0 Moderate protein-calorie malnutrition; C79.89 Secondary malignant neoplasm of other specified sites; Z66 Do not resuscitate; Z20.822 Contact with and (suspected) exposure to COVID-19; R13.12 Dysphagia, oropharyngeal phase; I48.91 Unspecified atrial fibrillation; D64.9 Anemia, unspecified; E87.5 Hyperkalemia; K22.2 Esophageal obstruction; I12.9 Hypertensive chronic kidney disease with stage 1 through stage 4 chronic kidney disease, or unspecified chronic kidney disease; E11.22 Type 2 diabetes mellitus with diabetic chronic kidney disease; K29.70 Gastritis, unspecified, without bleeding; E78.5 Hyperlipidemia, unspecified; N18.32 Chronic kidney disease, stage 3b; Z96.651 Presence of right artificial knee joint; Z83.3 Family history of diabetes mellitus; Z68.23 Body mass index [BMI] 23.0-23.9, adult
CPT/HCPCS: 36415; 36600; 70490; 71045; 71250; 74176; 76604; 76775; 76942; 80048; 80053; 80069; 81001; 82570; 82805; 82962; 83036; 83735; 83880; 83930; 83935; 83986; 84100; 84156; 84300; 84443; 84550; 85007; 85025; 85027; 85610; 85730; 87070; 87077; 87081; 87205; 87426; 89051; 92610; 93005; 93306; 93971; 94002; 94003; 97110; 97116; 97163; 97530; C9113; G0378; J0153; J0330; J0690; J1815; J1956; J2250; J2405; J2704; J7060